=== PATIENT | female | born 1950 | race Two or more races ===

== ENCOUNTER 2017-06-16 10:32 | Day surgery (SDC) | payer MEDICAID ==
[2017-06-16] MEDS ORDERED: Sodium Chloride 0.9% 10 ML Syringe FLUSH PRN (11:15)
[2017-06-16] MEDS ORDERED: Lactated Ringers 1,000 ML IV SCH (11:15)
[2017-06-16] MEDS ORDERED: fentaNYL 100 MCG/2 ML SDV ONE ×3 (11:54→12:13)
[2017-06-16] MEDS ORDERED: Propofol 200 MG/20 ML SDV ONE ×2 (11:54→12:13)
[2017-06-16] MEDS ORDERED: Midazolam 1 MG/ML 2 ML SDV ONE ×2 (11:54→12:09)
[2017-06-16] MEDS ORDERED: Ketamine 500 mg/10 ML MDV ONE ×2 (12:09→12:13)
--- NOTE | 2017-06-16 12:09 | PCM.PN ---
- General Info Date of Service: 06/16/17 - Review of Systems Systems Review Comment:: 66-year-old female referred by Kenrick Chambers for EGD. This patient has been having symptoms of dysphasia. She has been having some discomfort in the epigastrium as well. She states that she previously had upper endoscopy where her throat was stretched. She is medically stable to proceed today with no significant change in her health status since her recent history and physical which is reviewed. I have discussed the proposed upper endoscopy with the patient. She agrees to proceed accepting risks. - Patient Data Vitals - Most Recent: Last Vital Signs Temp 97.9 F 06/16/17 11:32 Pulse 91 06/16/17 11:32 Resp 18 06/16/17 11:32 BP Pulse Ox 98 06/16/17 11:32 Weight - Most Recent: 58.967 kg Lab Results Last 24 Hours: Laboratory Results - last 24 hr 06/16/17 Range/Units 11:32 POC Glucose 111 H (65-110) mg/dl Med Orders - Current: Current Medications Lactated Ringer's (Ringers, Lactated) 1,000 mls @ 70 mls/hr IV ASDIRECTED BRIAN Last Admin: 06/16/17 11:53 Dose: 70 mls/hr Sodium Chloride (Saline Flush) 10 ml FLUSH ASDIRECTED PRN PRN Reason: Keep Vein Open Discontinued Medications Fentanyl (Sublimaze) Confirm Administered Dose 100 mcg .ROUTE .STK-MED ONE Stop: 06/16/17 11:55 Midazolam HCl (Versed 1 Mg/Ml) Confirm Administered Dose 2 mg .ROUTE .STK-MED ONE Stop: 06/16/17 11:55 Propofol (Diprivan 20 Ml) Confirm Administered Dose 200 mg .ROUTE .STK-MED ONE Stop: 06/16/17 11:55 - Problem List Review Problem List Initiated/Reviewed/Updated: Yes - Assessment Assessment:: Dysphasia - Plan Plan:: EGD
[2017-06-16] MEDS ORDERED: Lidocaine 2% 5 ML SDV ONE (12:13)
--- NOTE | 2017-06-16 12:46 | PCM.OPNOTE ---
- General Post-Op/Procedure Note Date of Surgery/Procedure: 06/16/17 Operative Procedure(s): EGD with Biopsy Findings: Moderate inflammation on greater curvature of distal stomach Pre Op Diagnosis: Dysphagia,Diarrhea Post-Op Diagnosis: Gastritis Anesthesia Technique: MAC Primary Surgeon: José Duque Pathology: Biopsies of Duodenum, gastric antrum, Distal Esophagus Output, Urine Amount: 0 EBL in mLs: 3 Complications: None Condition: Good Free Text/Narrative:: Intake & Output 06/15/17 06/16/17 06/16/17 22:59 06:59 14:59 Intake Total 500 Balance 500
[2017-06-16 16:47] VITALS: BP 105/67
--- NOTE | 2017-06-17 08:36 | OR ---
Date of Procedure: 06/16/2017 PREOPERATIVE DIAGNOSES: 1. Dysphagia. 2. Diarrhea. POSTOPERATIVE DIAGNOSIS: Gastritis. OPERATION PERFORMED: Esophagogastroduodenoscopy with biopsy. INDICATIONS FOR SURGERY: This 66-year-old female has been having some symptoms of dysphagia with complaints of difficulty swallowing and she also notes that she has been having some difficulty with acid reflux and also with diarrhea. FINDINGS: The patient's esophagus and duodenum appeared normal. No visible inflammation or signs of esophageal damage or esophageal cancer are seen. The patient does have a localized area of hyperemia of the mucosa of the stomach along the greater curvature distally. No ulcers seen. Stomach, otherwise appears normal. DESCRIPTION OF PROCEDURE: The patient was taken to the operating room. She was given intravenous sedation, and after good IV sedation had been obtained, the hypopharynx was examined as could be performed with the gastroscope and then the esophagus was intubated under direct visualization with this scope. The scope was then carefully advanced down through the esophagus into the stomach and then on into the duodenum where examination to the 3rd portion was performed. Because of the history of diarrhea, random biopsies of the duodenum were taken. The scope was withdrawn back into the stomach where full examination, including retroflex examination of the fundus was performed. Biopsies of the antrum including the area of inflammation are taken to rule out H. pylori. The scope was then withdrawn to the level of the GE junction. Random biopsies in the distal esophagus were taken as well. The scope was then removed. The patient was taken from the operating room in satisfactory condition. ESTIMATED BLOOD LOSS: 3 mL. COMPLICATIONS: None. PROGNOSIS: Good. KRISTIN Duque MD /[id number]
== END 2017-06-16 14:08 | disposition home or self-care (01) ==
LOC: LL.SDS 10:32
PROVIDERS: ATTEND Surgery
DX: K29.70 Gastritis, unspecified, without bleeding (principal); K21.9 Gastro-esophageal reflux disease without esophagitis; E78.5 Hyperlipidemia, unspecified; Z79.899 Other long term (current) drug therapy; Z79.4 Long term (current) use of insulin; Z88.0 Allergy status to penicillin; Z88.1 Allergy status to other antibiotic agents; Z87.891 Personal history of nicotine dependence
CPT/HCPCS: 43239; 82962; J2704; J3010; J7120